=== PATIENT | male | born 1970 | race Caucasian/White ===

== ENCOUNTER 2025-07-14 17:31 | Observation (INO) | payer OTHER, SELFPAY ==
[2025-07-14] VITALS (9 sets, daily range): BP systolic 107–148; BP diastolic 61–90; BMI 25.0; BMI 24.6
[2025-07-14 14:21] LABS: Hematocrit 37.1 % (39.0-52.0); Hemoglobin 12.9 g/dL (13.0-18.0); Mean Corp Hgb Conc. 34.8 g/dL (33.0-37.0); Mean Corpuscular Volume 85.1 fL (80.0-94.0); Nucleated Red Blood Cells % 0 % (-); Platelet Count 185 10^3/uL (130-400); Red Cell Dist. Width 11.9 % (11.5-14.5)
[2025-07-14 14:55] LABS: Blood Urea Nitrogen 19 mg/dl (9-20); Calcium 9.4 mg/dl (8.4-10.2); Carbon Dioxide 26 mmol/L (22-30); Chloride 102 mmol/L (98-107); Estimated Creatinine Clearance > 125 ml/min; Glucose 177 mg/dl (70-99); Potassium 3.6 mmol/L (3.5-5.1); Sodium 132 mmol/L (135-145); eGFR > 60.00
--- NOTE | 2025-07-14 15:04 | HPS.HSE ---
Family Physician
-
Family Physician:
Chief Complaint
-
ADAME
History of Present Illness
55-year-old with no significant past medical history presented to us with frontal headache since this morning. Patient went for massage, and after the massage he felt confused, he was not able to remember the names of the people and his own kids.
He forgot his kids birthdate. Patient was having trouble expressing his thoughts. Patient also complained of left hand tingling. His symptoms lasted for few minutes and resolved. He still has the worsening frontal headache. Upon arrival to the
ER he was nauseous. Denied vomiting, abdominal pain or diarrhea. Patient denied any dizzy or syncope. Patient denied any fever, chills, cough, congestion. Patient denied dysuria hematuria.
Head neck CTA, head CT with no acute findings
Medical History
Past Medical History
Past Medical History: Reports None
Past Surgical History: Reports None
Social History
Tobacco: Non-smoker
Alcohol: Occasional
Drug: None
Personal:
Living: With Family
Family History
Family History: Not pertinent
Allergies / Home Medications
Allergies reflects when Allergies were last updated in [employer].
Home Medications with original date entered in [employer]
Allergy/Medication List:
Allergies
Allergy/AdvReac Type Severity Reaction Status Date / Time
No Known Allergies Allergy Verified 07/14/25 14:11
Home Medications
No Meds [No Current Medications] 07/14/25
Review of Systems
-
Constitutional: Reports No Symptoms
EENT: Reports No Symptoms
Respiratory: Reports No Symptoms
Cardiac: Reports No Symptoms
Abdomen/GI: Reports Nausea
: Reports No Symptoms
Musculoskeletal: Reports No Symptoms
Skin: Reports No Symptoms
Neurological: Reports Headache
Endocrine: Reports No Symptoms
Hematologic/Lymphatic: Reports No Symptoms
Psych: Reports No Symptoms
Physical Exam
Vital Signs
Vital Signs
Temp Pulse Resp BP Pulse Ox
97.8 F 60 15 129/90 100
07/14/25 14:40 07/14/25 14:40 07/14/25 14:40 07/14/25 14:40 07/14/25 14:40
Physical Exam
General: Well Developed, Well Nourished and No Apparent Distress
HEENT: NormoCephalic, Moist mucous membranes and Atraumatic
Respiratory: Clear
Cardiac: S1/S2 and Regular Rhythm; No Murmur or Rub
GI: Soft, Non Tender, Non Distended and Normal Bowel Sounds; No Organomegaly
Rectal: Deferred by Provider
Musculoskeletal: No Clubbing, No Cyanosis and No Edema
Skin: No Rash
Neuro: AO x 3 and Nonfocal/grossly intact
Psych: Calm
Laboratory Results
-
07/14/25 14:12
07/14/25 14:12
Data Reviewed
-
CT Scan: Report Reviewed by me
Lab Data: Labs Reviewed by me
Impression/Plan
-
# Headache/expressive aphasia concern for TIA
- CT head with no acute intracranial abnormality
- CTA head neck No findings to suggest significant atherosclerotic narrowing of the carotid arterial system bilaterally, bilateral internal carotid artery dissection or bilateral vertebral artery dissection.No significant proximal intracranial
arterial stenosis or vessel cut off.
- Aspirin, Plavix, statin
- Obtain MRI
- Obtain A1c, lipid profile
- Neurology consulted
# DVT prophylaxis
- SCDs
# CODE STATUS
- Full code
--- NOTE | 2025-07-14 15:17 | CON.NEURO4 ---
Consultation - Neurology 4
-
CONSULTING PHYSICIAN: Dr. Jose Luis Leonard
REFERRING PHYSICIAN: Dr. Bossman Lozada
DICTATED BY: Dr. Jose Luis Leonard
DATE/TIME OF REQUEST: 07/14/2025
DATE/TIME OF CONSULTATION: 07/14/2025
Reason for Consultation: Speech difficulty
ASSESSMENT AND PLAN:
The patient is a 55 years old male who at around 12:15 PM today developed speech difficulty that lasted for about an hour and then it fully resolved. The patient says that he had difficulty in finding words. He denies any focal weakness of arms or
legs, facial droop or any visual problem. The patient does not have a history of atrial fibrillation and he is on not on any blood thinners at home. The patient is under a lot of stress related to his job as per his . The patient is not a
candidate for thrombolytic therapy as his NIHss = 0. The patient says that he woke up with a headache this morning at around 7:30 AM. He describes the headache as a pressure-like headache and he rates it as a 7 out of [address] The CT of the head does not show any acute intracranial abnormality.
. The CTA of the head and neck did not show a LVO.
The patient appears to have had a transient ischemic attack, however cannot rule out lacunar infarct. The patient is not a candidate for thrombolytic therapy as his NIHSS = 0. The patient is under a lot of stress related to his job as per his .
Will also get a lipid profile.
The plan is to load the patient with 325 mg of aspirin x 1 and 300 mg of Plavix x 1. Then will start the patient on aspirin 81 mg daily, Plavix 75 mg daily and he will also be on atorvastatin 40 mg daily.
Also will get an echocardiogram.
Plan to get MRI of the brain without contrast.
I had a detailed discussion with the patient and his , regarding the assessment and the management plan, and they verbalized understanding of our discussion.
History of Present Illness:
The patient is a 55 years old male who at around 12:15 PM today developed speech difficulty that lasted for about an hour and then it fully resolved. The patient says that he had difficulty in finding words. The last known normal was at around
12:15 PM today. He denies any focal weakness of arms or legs, facial droop or any visual problem. The patient does not have a history of atrial fibrillation and he is on not on any blood thinners at home. The patient is under a lot of stress at
home relating to his job as per his . The patient says that he woke up with a headache this morning at around 7:30 AM. He describes the headache as a pressure-like headache and he rates it as a 7 out of 10 in severity.
Review of Systems:
The patient denies dizziness, chest pain, shortness of breath, fever, chills, nausea and vomiting.
Neurologic Examination:
The patient is alert and oriented x 3,
Speech is clear,
Cranial nerves II to XII are grossly intact,
The motor strength is 5/5 bilaterally in upper and lower extremities,
The sensation is grossly intact,
The cerebellar examination does not show limb ataxia.
NIHSS = 0
Vital Signs and Labs
-
Vital Signs and Labs:
Vital Signs
Temp Pulse Resp BP Pulse Ox
36.6 C 60 15 129/90 100
07/14/25 14:40 07/14/25 14:40 07/14/25 14:40 07/14/25 14:40 07/14/25 14:40
Lab Results
07/14/25 14:12
07/14/25 14:12
Sodium 132 mmol/L (135-145) L 07/14/25 14:12
Potassium 3.6 mmol/L (3.5-5.1) 07/14/25 14:12
BUN 19 mg/dl (9-20) 07/14/25 14:12
Glucose 177 mg/dl (70-99) H 07/14/25 14:12
Calcium 9.4 mg/dl (8.4-10.2) 07/14/25 14:12
Medications
-
Active Medications
Generic Name Dose Route Start Last Admin
Trade Name Freq PRN Reason Stop Dose Admin
Ondansetron HCl 4 mg 07/14/25 14:28
Ondansetron 4 Mg/2 Ml Vial IV 07/14/25 18:00
ONCE PRN PRN
NAUSEA
Home Medications
�Medication �Instructions �Recorded
No Meds [No Current Medications] 07/14/25
[2025-07-14] MEDS: PLAVIX 300 MG PO (15:50)
[2025-07-14] MEDS: ASPIRIN 325 MG PO (15:50)
[2025-07-14] MEDS: TYLENOL 650 MG PO ×2 (15:50→20:37)
--- NOTE | 2025-07-14 16:16 | W.PN.UPDATE ---
Update Note
Progress Note Update
I saw and examined the patient. The SHRIMP BOAT CAPTAIN's note was reviewed and I agree with the note.
Patient is a 55-year-old male without significant past medical history came to ER after having new onset of expressive aphasia and remembering names lasting for 45 minutes. Upon the patient woke up with a frontal headache in the morning. Denies of
having any history of previous history of migraine/complex headache issues. Patient went to have a massage and end of which patient ended up having expressive aphasia and name finding difficulty. Patient was not having any other neurological
symptoms at that time. Denies having any previous episodes of TIA/CVA. Patient is not lifelong non-smoker
GEN: aox3
HEENT: moist mucus membrane, PERRLA/EOMI, no thryomegaly or LNpathy
Chest: Clear to auscultation
Heart: N s1/s2, RRR, no rub/mrumur/gallops
Abd: N BS, soft, nontender, nondistended, no organomegaly
Neuro: No motor or sensory deficits, bilateral symetric DTR
Ext: No cyanosis, Clubbing, edema
transient ischemic attack
- 45 minutes of expressive aphasia and word finding
- CT head negative for acute issues
- CTA head and neck did not show any critical carotid arterial narrowing
- MRI brain without contrast
- Patient got dose of aspirin and Plavix and statin in ER
- Check lipid profile and hemoglobin A1c in morning
- Neuro-checks in the night
- Observation admit on telemetry floor
Headache
- Associated with some nausea
- No history of migraine or complex headache
- Provide dose of Compazine/tylenol
Full code
Total time spent : 60 mins
I personally saw and examined the patient.
I have reviewed all diagnostic interpretations and treatment plans as written.
Time includes patient management by me, time spent at the patients bedside, time to review lab and imaging results, discussing patient care, documentation in the medical record, and time spent with the family or caregiver and discussing care plan
with RN/Consultants. Total time spent : 80 mins
[2025-07-14] MEDS: COMPAZINE 10 MG IV (17:17)
--- NOTE | 2025-07-14 20:20 | PTCARENOTE ---
Pt received from ED via wheelchair at 1915. Pt pleasant, AAOx3, and able to ambulate into with stand by assistance. Pt complains of mod 7/10 ADAME pain, see MAR for pain management. Pt receptive to room and call franklin. Pt bed in lowest position and call
franklin within reach. Pt educated on importance of call franklin usage, pt relays understanding and cooperation. Will continue with current plan of care.
[2025-07-14] MEDS: LIPITOR 40 MG PO (20:36)
[2025-07-15 03:27] VITALS: BP 119/68
[2025-07-15 07:01] LABS: Hematocrit 40.8 % (39.0-52.0); Hemoglobin 13.7 g/dL (13.0-18.0); Mean Corp Hgb Conc. 33.6 g/dL (33.0-37.0); Mean Corpuscular Volume 89.5 fL (80.0-94.0); Platelet Count 189 10^3/uL (130-400); Red Cell Dist. Width 11.9 % (11.5-14.5)
[2025-07-15 07:15] VITALS: BP 118/61
[2025-07-15 07:15] LABS: Blood Urea Nitrogen 11 mg/dl (9-20); Calcium 9.5 mg/dl (8.4-10.2); Carbon Dioxide 28 mmol/L (22-30); Chloride 106 mmol/L (98-107); Estimated Creatinine Clearance > 125 ml/min; Glucose 101 mg/dl (70-99); HDL Cholesterol 62 mg/dl; LDL Cholesterol, Calculated 189 mg/dl; Potassium 3.8 mmol/L (3.5-5.1); Sodium 137 mmol/L (135-145); Very Low Density Lipoprotein 19 mg/dl (0-30); eGFR > 60.00
[2025-07-15] MEDS: PLAVIX 75 MG PO (07:21)
[2025-07-15] MEDS: LOW STRENGTH ASPIRIN 81 MG PO (07:21)
[2025-07-15 09:20] LABS: Glycohemoglobin (HgbA1c) 5.3 % (4.0-5.9)
[2025-07-15 09:26] VITALS: BP 120/72; PULSE 63; O2SAT 99
--- NOTE | 2025-07-15 09:41 | PTOTSP ---
Speech Therapy Evaluation:
Pt with acute risk factor for dysphagia including concern for CVA, however oropharyngeal swallow appeared functional at bedside. No overt s/sx of aspiration across trials. No chest imaging completed thus far, however WBC WNL, pt on room air, and
without dysphagia hx.
Additionally, pt admitted with confusion and aphasia, which he reported has completely resolved. No obvious deficits with speech, language, or cognition during informal observation. RUBBER GOODS SUPERVISOR to follow for further assessment pending MRI.
Recommend:
1. Regular solids and thin liquids
2. Meds as tolerated
3. General aspiration precautions
4. RUBBER GOODS SUPERVISOR to follow pending results of MRI
--- NOTE | 2025-07-15 10:04 | CM ---
Addendum entered by Dale Perez 07/15/25 15:31:
Patient will d/c home today
Original Note:
Patient seen bedside, initial assessment completed. Patient is a 55-year-old with no significant past medical history presented to us with frontal headache.
Patient resides w/ spouse and their 2 adult sons in a 2STH, 1 step to enter. Patient is independent in all areas, no DME. No SNF/HC hx. 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 Enjoys yoga and playing the [employer].
Address, point of contact and insurance verified
PCP: Cooper Castle
Pharmacy: [facility]
Patient admitted obs. OOBS form verbally reviewed, copy provided, copy on chart
PT/OT assessed, no skilled needs identified
Speech evaluated, skilled service indicated
Patient aware of availability for OP OT/ST
Plan: Home, no needs likely. Will offer script for OP therapies at d/c
[2025-07-15 10:54] LABS: Ferritin 111.0 ng/ml (17.9-464.0)
--- NOTE | 2025-07-15 11:09 | W.PN.NEURO.1 ---
Addendum entered and electronically signed by Jose Luis Leonard MD 07/15/25 22:37:
I saw and examined the patient today along with the nurse practitioner and Fide Nj, and I agree with her assessment and management plan. Given below is my add addendum.
The patient is a 55 years old male who at around 12:15 PM on 07/14/2025, developed speech difficulty that lasted for about an hour and then it fully resolved. The patient says that he had difficulty in finding words. He denies any focal weakness
of arms or legs, facial droop or any visual problem. The patient does not have a history of atrial fibrillation and he is on not on any blood thinners at home. The patient is under a lot of stress related to his job as per his . The patient
was not a candidate for thrombolytic therapy as his NIHSS was 0.
Today the patient was doing well and he denied any symptoms.
On neurologic semination, the patient is alert and oriented x 3, speech is clear, cranial nerves II to XII grossly intact, the patient does not have any gross focal weakness and there was no limb ataxia seen.
. The CT of the head does not show any acute intracranial abnormality.
. The CTA of the head and neck did not show a LVO.
The patient appears to have had a transient ischemic attack, however cannot rule out lacunar infarct. The patient was not a candidate for thrombolytic therapy as his NIHSS was 0. The patient is under a lot of stress related to his job as per his
. Will also get a lipid profile.
The patient was loaded with 325 mg of aspirin x 1 and 300 mg of Plavix x 1. And is on a daily dose of aspirin 81 mg daily and Plavix 75 mg daily. After 21 days the patient will stop taking Plavix and he will be on aspirin after that. He will also
be on atorvastatin 40 mg daily.
. MRI of the brain did not show an acute intracranial abnormality.
. The echocardiogram was done which showed an ejection fraction of 56%. The interatrial septum appears to be normal and intact with no evidence of interatrial shunting.
The patient likely had a transient ischemic attack.
Follow-up with neurology as an outpatient.
I had a detailed discussion with the patient regarding the assessment and the management plan, and he verbalized understanding of our discussion.
Original Note:
Today's Communication / Plan
-
.
Neuro Assessment/Plan
Assessment
The patient is a 55-year-old male who at around 12:15 PM on 07/14/25 developed speech difficulty that lasted for about an hour and then it fully resolved. The patient says that he had difficulty in finding words. He denies any focal weakness of
arms or legs, facial droop or any visual problem. The patient does not have a history of atrial fibrillation and he is on not on any blood thinners at home. The patient is under a lot of stress related to his job as per his . The patient is
not a candidate for thrombolytic therapy as his NIHss = 0. The patient says that he woke up with a headache earlier that morning at around 7:30 AM. The headache was a pressure-like headache and he rates it as a 7 out of [address] The CT of the head does not show any acute intracranial abnormality.
. The CTA of the head and neck did not show a LVO.
I. Transient aphasia; possible etiologies include a transient ischemic attack, small ischemic stroke, less likely a stress/headache syndrome.
Plan
-Continue DAPT with aspirin 81mg and clopidogrel 75mg daily for 21 days. After 21 days, stop clopidogrel and continue aspirin 81mg daily only.
-MRI brain noncontrast pending.
-TTE pending.
-Goal normotension.
-LDL goal <70. LDL is 189. Continue newly initiated atorvastatin 40mg daily.
-Goal normoglycemia, hbA1c is 5.3.
-NIHSS and neurological checks per unit guidelines.
-Provide patient with a stroke education packet.
-PT/OT/ST evaluations.
-DVT prophylaxis.
Subjective/Objective
Subjective Data
Date of Service: July 15, 2025
No acute events overnight. Patient reports feeling at his baseline, denies any further speech difficulty/confusion.
Objective Data
Vital Signs
Temp Pulse Resp BP Pulse Ox
98.6 F 58 16 118/61 99
07/15/25 07:15 07/15/25 07:15 07/15/25 07:15 07/15/25 07:15 07/15/25 07:15
Lab Results
07/15/25 06:31
07/15/25 06:31
Sodium 137 mmol/L (135-145) 07/15/25 06:31
Potassium 3.8 mmol/L (3.5-5.1) 07/15/25 06:31
BUN 11 mg/dl (9-20) 07/15/25 06:31
Glucose 101 mg/dl (70-99) H 07/15/25 06:31
Calcium 9.5 mg/dl (8.4-10.2) 07/15/25 06:31
LDL Cholesterol, Calc 189 mg/dl 07/15/25 06:31
Patient Allergies
No Known Allergies Allergy (Verified 07/14/25 14:11)
LDL Level: >70, statin ordered
Review of Systems
-
History Source: Patient
EENT: Negative Blurry Vision, Decreased Vision or Swallowing Difficulty
Neuro: Negative Dizzy, Headache, Weakness, Numbness, Ataxia, Tremors or Speech Problem
Physical Exam
-
General: Well Developed, Well Nourished and No Apparent Distress
Eyes: No Ptosis and PERRLA
HEENT: Normocephalic and Atraumatic
Neck: Full Range of Motion
Respiratory: No Dyspnea
GI: Non-distended
Extremities: No Clubbing, No Cyanosis and No Edema
Psych: Unremarkable
Extended Neurological Exam
Mood & Affect: Mood Unremarkable and Affect Unremarkable
Attention Span & Concentration: Awake, Alert and Interactive
Memory: Unremarkable and Able to Recall
Tremor: Hand Tremor Absent and Head Tremor Absent
Involuntary Movement: None
Speech: Quality Unremarkable, Quantity Unremarkable and Rate of Production Unremarkable
Cranial Nerve II: Left Eye: Pupillary Reactivity Unremarkable, Pupillary Size Unremarkable and Visual [place] Intact
Cranial Nerve II: Right Eye: Pupillary Reactivity Unremarkable, Pupillary Size Unremarkable and Visual [place] Intact
Cranial Nerves III, IV, : Extraocular Movement: Extraocular Movement Full in all Directions
Cranial Nerve VII: Facial Symmetry: Normal Facial Symmetry
Cranial Nerve VIII: Hearing: Unremarkable Hearing to Normal Conversational Volume
Cranial Nerves IX, X: Palate Movement: Palate Elevation Symmetric
Cranial Nerve XI: Shoulder Shrug: Unremarkable
Cranial Nerve XII: Tongue Protusion: Midline
Muscle Strength, Overall: Full Throughout
Pronator Drift: No Drift in Upper Extremities and No Drift in Lower Extremities
Touch Sensation: Double Simultaneous Stimulation Unremarkable
Coordination: Ilzyit-[id number] Testing Unremarkable
Modified Lesa Score (MRS)
-
Modified Long Scale (mRS): No symptoms
Score: 0
Data Reviewed
-
CT-A: Report Reviewed and Image Reviewed
CT Head: Report Reviewed and Image Reviewed
MRI Head: Pending
Labs: Report Reviewed
Lipid Profile: Report Reviewed
HgbA1C: Report Reviewed
Medications
-
Active Medications
Generic Name Dose Route Start Last Admin
Trade Name Freq PRN Reason Stop Dose Admin
Acetaminophen 650 mg 07/14/25 15:39 07/14/25 20:37
Acetaminophen 325 Mg Tablet PO 08/11/25 15:38 650 mg
Q4HPRN PRN Administration
ADAME, mild pain, or temp >100.4F
Acetaminophen 650 mg 07/14/25 18:58
Acetaminophen 650 Mg Rectal Suppository RECTAL 08/11/25 18:57
Q4HPRN PRN
ADAME, mild pain, or temp >100.4F
Aspirin 81 mg 07/15/25 08:00 07/15/25 07:21
Aspirin 81 Mg Chewable Tablet PO 08/12/25 07:59 81 mg
DAILY VIANNEY Administration
Atorvastatin Calcium 40 mg 07/14/25 18:58 07/14/25 20:36
Atorvastatin (Lipitor) 40 Mg Tablet PO 08/11/25 18:57 40 mg
QPM VIANNEY Administration
Clopidogrel Bisulfate 75 mg 07/15/25 08:00 07/15/25 07:21
Clopidogrel 75 Mg Tablet PO 08/12/25 07:59 75 mg
DAILY VIANNEY Administration
Prochlorperazine Edisylate 10 mg 07/14/25 17:09 07/14/25 17:17
Prochlorperazine 10 Mg/2 Ml Vial IV 08/11/25 17:08 10 mg
Q6HPRN PRN Administration
n/v
Sodium Chloride 0 flush 07/14/25 19:00
Sodium Chloride 0.9% (Flush) Syringe IV 08/11/25 18:59
PER PROTOCOL VIANNEY
Home Medications
�Medication �Instructions �Recorded
No Meds [No Current Medications] 07/14/25
[2025-07-15 11:10] VITALS: BP 122/76
[2025-07-15 11:26] LABS: Folate 13.2 ng/ml (2.76-20); Vitamin B12 746 pg/ml (239-931)
--- NOTE | 2025-07-15 11:26 | W.PN.HOSP.TC ---
Today's Communication/Plan
-
await Echo and MRI results
possible DC pending results
Assessment / Plan
Assessment / Plan
Assessment:
TIA
- CT Head negative
- CTA Head/neck negative
- MRI brain pending
- Echo
- DAPT per Neurology x 21 days, then 81mg daily aspirin
- Statin; LDL 189
- A1c 5.3%
- PT/OT/ST
Hyponatremia - resolving
Headache
- Associated with some nausea
- No history of migraine or complex headache
- Provide dose of Compazine/Tylenol
Full code
Anticipated Discharge: Today
Subjective/Interval History
-
Date of Service: July 15, 2025
denies any neurological complaints
NIH 0 per monitoring overnight into this morning
Objective Data
-
Labs:
Laboratory Results
07/15/25
06:31
WBC 5.4
Hgb 13.7
Hct 40.8
Plt Count 189
Sodium 137
Potassium 3.8
Chloride 106
Carbon Dioxide 28
BUN 11
Creatinine 0.7
Glucose 101 H
Calcium 9.5
Vital Signs:
Vital Signs
Temp Pulse Resp BP Pulse Ox
98.6 F 58 16 118/61 99
07/15/25 07:15 07/15/25 07:15 07/15/25 07:15 07/15/25 07:15 07/15/25 07:15
I&O
07/14/25 07/15/25 07/16/25
06:59 06:59 06:59
Intake Total 480 / 480
Balance 480 / 480
Physical Exam
-
General: No Apparent Distress
HEENT: Normocephalic and Atraumatic
Respiratory: Negative Wheezes
Cardiac: Regular Rhythm and S1/S2
GI: Soft and Nontender
Musculoskeletal: No Edema
Neuro: AO x 3
Psych: Calm
Data Reviewed
-
Total Time Spent with Patient (in minutes): 41
Labs: Labs Reviewed by me
[2025-07-15 14:53] VITALS: BP 113/78
--- NOTE | 2025-07-15 15:09 | W.DCSUMMARY ---
Discharge Summary
Discharge Data
Date of Admission: 07/14/25
Date of Discharge: 07/15/25
-
Pending Results: No
Hospital Course
55 y/o M with no PMH presented to ER on 07/14 with headache and expressive aphasia which lasted for 45 minutes. Patient was seen by Neurology; stroke alert was called. Head CT and CTA was negative. MRI was negative. Echo was unremarkable. He was
started on Statin along with ASA/Plavix x 3 weeks then ASA alone. He will follow up with PCP outpatient.
He was discharged home 07/15 after clearing PT, OT and Speech therapy.
Discharge Plan
-
Patient Disposition: Home (Routine Discharge)
Discharge Diagnosis/Procedures: TIA
Diet: Low Cholesterol
Activity: As tolerated
Bathing Restrictions: None
Referrals:
Cooper Castle MD [Family Provider, Family Practice] - in one week
Prescriptions:
New
atorvastatin 40 mg Tablet
40 mg PO QPM Qty: 30 0RF
clopidogrel 75 mg Tablet
75 mg PO DAILY Qty: 20 0RF
aspirin 81 mg Tablet,Chewable
81 mg PO DAILY Qty: 100 0RF
Discharge Orders:
Discharge Patient (As Directed); Ordered 07/15/25
Ordered By: Juni Teran
Discharge Date and Time
Print Language: LATVIAN
== END 2025-07-15 15:12 | disposition home or self-care (01) ==
LOC: 4 WEST ACU 17:31
PROVIDERS: Registered Nurse; ADMITTING PHYSICIAN Hospitalist; ATTENDING PHYSICIAN Internal Medicine; CONSULT PHYSICIAN Psychiatry & Neurology Neurology; EMERGENCY PHYSICIAN Emergency Medicine; FAMILY PHYSICIAN Family Medicine
DX: G45.9 Transient cerebral ischemic attack, unspecified (principal); R47.9 Unspecified speech disturbances; R20.2 Paresthesia of skin; R47.01 Aphasia; R51.9 Headache, unspecified; I49.8 Other specified cardiac arrhythmias; R00.1 Bradycardia, unspecified; I08.3 Combined rheumatic disorders of mitral, aortic and tricuspid valves; E87.1 Hypo-osmolality and hyponatremia; R11.0 Nausea; I70.0 Atherosclerosis of aorta
CPT/HCPCS: 70450; 70496; 70498; 70551; 80048; 80061; 82607; 82728; 82746; 83036; 84443; 85025; 85027; 92610; 93005; 93306; 97166; 99285; G0378; Q9967